=== PATIENT | male | born 1995 | race Hispanic/Latino ===

== ENCOUNTER → 2021-03-11 | Outpatient (CLI) | payer OTHER | LOC: M LABSMTC 09:14 | PROVIDERS: ATTEND Ophthalmology | DX: Z01.812 Encounter for preprocedural laboratory examination (principal); Z20.822 Contact with and (suspected) exposure to COVID-19 ==

== ENCOUNTER 2021-03-16 08:42 | Day surgery (SDC) | payer OTHER ==
[~2021-03-16] VITALS: Ht 175.3 cm; Wt 85.3 kg
[~2021-03-16 08:42] MED LIST: CIPROFLOXACIN 0.3% OPHTH OINTMENT As Ordered ONE; LIDOCAINE 2% W/EPINEPHRINE 20ML VIAL **PRES FREE As Ordered ONE; MIDAZOLAM INJ 2MG/2ML VIAL (J2250 PER 1MG) As Ordered ONE; POVIDONE-IODINE 5% OPHTH PREP SOL 30ML As Ordered ONE; TOBRADEX OPHTH OINT 3.5 GM As Ordered ONE; fentaNYL 100 MCG/2 ML INJECTION (J3010) As Ordered ONE
[2021-03-16] MEDS ORDERED: propofoL 200 MG/20 ML VIAL As Ordered ONE (10:36)
[2021-03-16 11:24] VITALS: BP 111/69
--- NOTE | 2021-03-17 11:03 | RO ---
OPERATIVE NOTE DATE OF OPERATION: 03/16/2021 PREOPERATIVE DIAGNOSIS: Right upper eyelid chalazion. POSTOPERATIVE DIAGNOSIS: Right upper eyelid chalazion. PROCEDURE: Excision of right upper eyelid chalazion. SURGEON: Nikhil Hickman DO. FOUNDRY MELT SUPERVISOR: ANESTHESIA: Local 2% lidocaine with epinephrine, approximately 1.5 mL with sedation. DESCRIPTION OF PROCEDURE: Patient was seen and identified in the preoperative area. The consents were reviewed as well as risks and benefits to the surgical procedure. Surgical consent was obtained. At that time, the patient was transferred to the operating room. The eye was prepped and draped in a sterile fashion. Using 2% lidocaine with epinephrine, the right upper eyelid was injected for a total of approximately 1.5 mL of anesthesia. At that time, using a medium chalazion clamp, the right upper eyelid chalazion was clamped, and then the right upper eyelid was everted. An 11 blade was used to incise the right upper eyelid chalazion, and then a curette was used to remove all of the contents of the chalazion. This was done to completion and confirmed with light pressure with a cotton tip applicator revealing no further contents. A very gentle bipolar cautery was applied to the edge of the incision where there was some mild oozing. At that time, the eye was flushed with BSS. TobraDex ointment was placed on the surface of the incision site, and then the eye was patched and shielded to be removed the following morning. Patient tolerated the procedure well and was discharged to the PACU in a stable condition.
== END 2021-03-16 11:25 | disposition home or self-care (01) ==
LOC: M SDC 08:42
PROVIDERS: ATTEND Ophthalmology
DX: H00.11 Chalazion right upper eyelid (principal); R06.83 Snoring
CPT/HCPCS: 67800; J2250; J3010

== ENCOUNTER → 2022-03-14 | Outpatient (REF) | payer OTHER | LOC: M SMT 12:44 | PROVIDERS: ATTEND Urology | DX: Z30.2 Encounter for sterilization (principal); Z30.8 Encounter for other contraceptive management ==

== ENCOUNTER → 2022-05-16 | Outpatient (REF) | payer OTHER ==
[2022-05-16 14:31] LABS: SEMEN APPEARANCE OPAQUE (OPAQUE); SEMEN VISCOSITY LIQUID (LIQUID); SEMEN VOLUME 2.4 ml (2.0-5.0); WBC CONCENTRATION <=1 M/ml (<=1 M/ml)
== END ==
LOC: M SMT 14:28
PROVIDERS: ATTEND Urology
DX: Z30.8 Encounter for other contraceptive management (principal)